=== PATIENT | female | born 2000 | race Asian ===

== ENCOUNTER 2024-11-03 09:50 | Outpatient (AMB) | payer OTHER, SELFPAY ==
--- NOTE | 2024-11-03 09:53 | A.OFFPC_ITS ---
Vital Signs 11/03/24 09:58 Height 5 ft 2 in Weight 106 lb 2 oz BMI 19.4 BP 102/67 Blood Pressure Location Lt brachial Position Sitting Respiration 12 Pulse 95 Pulse Source Pulse Oximeter Temp 97.5 F Temp Source Oral Pulse Oximetry (%) 99 Oxygen Delivery Method Room Air Intake Visit Reasons: CPE Intake Note: New patient to establish care and cpe Filler In Required: No Allergies apple Allergy (Severe, Verified 11/03/24 10:04) Unknown carrot Allergy (Severe, Verified 11/03/24 10:04) Unknown cat dander (cats) Allergy (Severe, Verified 11/03/24 10:04) Unknown pear Allergy (Severe, Verified 11/03/24 10:04) Unknown dust mite Allergy (Severe, Uncoded 11/03/24 09:54) Unknown pollen Allergy (Severe, Uncoded 11/03/24 09:54) Unknown Medication List - Last Reconciled 11/03/24 by Yanira Miller, MATERIAL CHASER-BC copper (ParaGard T 380A) intrauterine Tobacco use date assessed: 11/03/24 Dental Screening Dental Screen Date: 11/03/24 Did you have a dental visit in the last 12 months?: Yes Did you have a dental problem in the last 6 months where you did not have access to dental care?: No Was dental information given to patient?: Patient has dentist HPI HPI Comments History of Present Illness Details 24 y/o F with allergic rhinitis, eczema, food allergies, CRIS, bone mass L anterior chest wall (benign), bilat bunions and pes planus, family hx stroke (dad) Fhx: Dad 2021, age 54; pGF and pGM passed 2024; Hx of stroke Surgery: None Social: Lives w/ Mom, Brother, cousin, uncle and . Feels safe. Working calibration. Health Maintenance: Tdap 2013, updated today Pap referred to SECURITY INSTALLER today @ [facility] [place] Specialist: SECURITY INSTALLER Optho History of Present Illness - The patient is a 24-year-old female pr esenting for the establishment of care and a physical examination. - Records from [facility] rec' and reviewed - History of allergic rhinitis, eczema, and multiple food allergies. Well controlled; prn antihistamines otc w/ + effct - Reports last physical examination four years ago; has never visited an OB-SECURITY INSTALLER. - Strong family history of cardiovascula r events on the paternal side. - Reports anxiety associated with negati ve healthcare experiences. - Resides with family, employed in [employer]. - Bone mass on the left anterior chest w all benign - anxiety affecting mental health. Has n ever been on meds or in counseling. Denies SI/HI - Has bunions bilat feet and flat feet, saw podiatry in the past; would like to fu - would like updated eye exam Health Maintenance - Referred for counseling support. - Referral for first Pap smear. - IUD in place since 12/31/2020. - Updated tetanus vaccination. - Advised on self-breast exam techniques . - Referral for podiatry due to bunions. Review of Systems - General: Denies recent physical examin ation. - Psych: Reports anxiety related to heal thcare visits; denies depressive symptoms. - Dermatologic: History of eczema; curre ntly well-controlled. - Allergic/Immunologic: History of aller gic rhinitis and multiple food allergies. - Neurologic: Denies fainting episodes; no history of seizures. - Cardiovascular: Denies chest pain or p alpitations. - Respiratory: Denies shortness of breat h or coughing. - Gastrointestinal: Regular bowel moveme nts; no abdominal pain. - Genitourinary: Had IUD placement; regu lar menses despite contraceptive use. - Musculoskeletal: Reports benign bone m ass, previous evaluation. - Hematologic: No known bleeding disorde rs. Physical Exam General: Well developed, well nourished, in no acute distress. Appears stated age. Head: Normocephalic, atraumatic. Eyes: Pupils are equal, round and reactive to light and accommodation. Conjunctivae are clear. Vision grossly normal. Ears: TMs clear AU, EACS WNL. Nose: Patent, without discharge. Some allergies noted with a small polyp bilat. Neck: Supple, no adenopathy or thyromegaly. Breast: Edu on SBE. Patient advised to perform self-breast exams. Lungs: Clear to auscultation bilaterally. No rales, rhonchi or wheeze noted. Good air flow in all espinal. Heart: Regular rate and rhythm. No murmurs, click, rubs or gallops are noted. L chest wall is a firm palpable mass; this has been worked up in the past. Abdomen: Bowel sounds present in all quadrants. The abdomen is soft, nontender, with no masses or organomegaly noted. No hernias are noted. : Deferred. Reviewed recommendations for routine SECURITY INSTALLER. Referral for first Pap smear placed. Pulses: Peripheral pulses are equal and palpable bilaterally. Extremities: No clubbing, cyanosis nor edema is noted. Bunions noted on both feet; referral to podiatry placed. Neurologic: Gait and station normal. Cranial Nerves 2-12 intact. Motor strength grossly symmetrical and intact. No sensory loss. Balance normal. Skin: No rashes, ulcers, or lesions noted. Turgor is good. Skin color is good. Hair and nails are without abnormalities. Eczema well controlled. Psych: Normal eye contact, affect and mood appropriate, and normal interactions. Patient is alert and appropriate to context. Results - Labs: Comprehensive panel discussed, i ncluding blood counts, kidney and liver function, thyroid, diabetes screen. - STI Screening: HIV, syphilis, gonorrhe a, and chlamydia tests planned but not discussed as completed. Discussion Notes I discussed the possible familial risk of stroke and the significance of understanding this risk. The importance of regular health checkups, first Pap test, and mental health counseling was emphasized. I addressed the patient?s anx iety and need for support with a referral for counseling through our navigation team, ensuring a supportive follow-up process was understood. Discussions included the specifics of her contraceptive use and need for an OB-SECURITY INSTALLER visit. The potential benign nature of her bone mass and reassurance provided previously were noted. Our referrals and health maintenance updates were discussed, focusing on patient ease in obtaining care. For the engagement with a specialist, I provided instruction for self-management regarding her eye health and podiatry referral. Consent for lab work and STI screening was also noted, ensuring clarity on the process for follow-up communication about results via our patient portal. Assessment and Plan 1. Allergic Rhinitis - Continue antihistamines as needed. 2. Anxiety - Start with therapy; referral placed 3. Eczema - No changes needed. 4. Bone Mass, Left Chest - No action required. 5. IUD - Refer for Pap smear. 6. Podiatry - Referral initiated. 7. Health Maintenance - Tetanus shot updated. Refer to optho for eye exam Patient Instructions - Continue using antihistamines as neede d for allergies. - Follow up with counseling services for anxiety. - Regularly perform self-breast exams. - Complete Pap smear appointment when sc heduled. - Maintain updated vaccinations. - Schedule podiatry appointment as refer red. - Ensure comprehensive blood work and ST I testing today. - Engage with the patient portal to acce ss health information and communicate. - RTO 1 year CPE sooner PRN Consent Patient was informed and verbally consented to the use of an ambient scribe for clinic note documentation during this visit. An additional 15 minutes was spent addressing the problem(s) noted at todays visit. This includes time spent before the visit reviewing the chart, time spent during the visit, and time spent after the visit on documentation reviewing laboratory results, diagnostic imaging, medications, performing a medically nec essary evaluation, counseling on diagnoses, care coordination, ordering appropriate tests, ordering appropriate medications, review of tests performed by other providers, reporting test results with the patient, communication with other healthcare providers. [facility] Medical History (Updated 11/03/24 @ 10:41 by Yanira Miller, [facility]) Allergic rhinitis (~06/2015) Bone mass (~02/2015) Bunion of great toe of right foot (~02/2015) Eczema Food allergy Surgical History (Updated 11/02/24 @ 10:00 by Nathan Herron MA) No pertinent past surgical history Family History (Updated 11/02/24 @ 09:58 by Nathan Herron MA) Father HTN (hypertension) High cholesterol Paternal Grandmother Diabetes Social History (Updated 11/03/24 @ 10:02 by Nathan Herron MA) Household Members: Other Household Members Other:: Mother Housing: House Are you a primary respiratory care program director to a significant other at home: No Do you presently have visiting nurse or other home services: No Alcohol intake: current Alcohol intake frequency: a few times a month Patient Tobacco Use Status: Never used Tobacco e-Cigarette/Vaping Use: Never Used Second Hand Smoke Exposure: No Current occupational status: employed Current occupation: [employer] Current occupational exposures/hazards: No Cognitive needs: No Hearing needs: No Vision needs: No Questionnaire PHQ-9 Over the last 2 weeks, how often have you been bothered by any of the following problems? 1. Little interest or pleasure in doing things: not at all 2. Feeling down, depressed, or hopeless: not at all 3. Trouble falling or staying asleep, or sleeping too much: not at all 4. Feeling tired or having little energy: several days 5. Poor appetite or overeating: not at all 6. Feeling bad about yourself - or that you are a failure or have let yourself or your family down: not at all 7. Trouble concentrating on things, such as reading the newspaper or watching television: not at all 8. Moving or speaking so slowly that other people could have noticed. Or the opposite - being so fidgety or restless that you have been moving around a lot more than usual: not at all 9. Thoughts that you would be better off or of hurting yourself in some way: not at all Total score: 1 Depression Screening Interpretation: Negative Depression Screening Done: Yes 68176 - PHQ-9 Billing: Yes Source: Developed by Drs. Juan Francisco Hopper, Imelda Prado, Kevin Dela Cruz and colleagues, with an educational mirella from [email or web address]. Thrive Questionnaire Date Thrive assessed: 11/03/24 I am a: Patient What is your living situation today?: I have a steady place to live Within the past 12 months, did the food you bought not last and you didn't have the money to get more?: Never true Within the past 12 months, did you worry whether your food would run out before you got money to buy more?: Never true Do you have trouble paying for medicines?: No Do you have trouble getting transportation to medical appointments?: No Do you have trouble paying your heating and electricity bill?: No Do you have trouble taking care of your child, family member or friend?: No Do you have trouble with day-to-day activities such as bathing, preparing meals, shopping, managing finances, etc.?: No Are you currently unemployed and looking for a job?: No Are you interested in more education?: I choose not to answer this question Please select the resources that you would like help with: None Currently or been in a relationship where the following occur: No concerns reported THRIVE Score: 0 AUDIT C Alcohol Use Questionnaire (AUDIT-C) 1. How often do you have a drink containing alcohol?: Monthly or less 2. How many drinks containing alcohol do you have on a typical day when you are drinking?: 1 or 2 3. How often do you have six or more drinks on one occasion?: Never Total Score: 1 Score Reviewed/Action Taken: Yes CRIS-7 AMB Questionnaire CRIS-7 Date CRIS - 7 assessed: 11/03/24 Feeling nervous, anxious, or on edge: 0 = Not at all Not being able to stop or control worryin = Not at all Worrying too much about different things: 0 = Not at all Trouble relaxin = Not at all Being so restless that it is hard to sit still: 0 = Not at all Becoming easily annoyed or irritable: 1 = Several days Feeling afraid as if something awful might happen: 0 = Not at all Total CRIS-7 score (0-4 normal; 5-9 mild; 10-14 moderate; 15-21 severe): 1 Source: Developed by Drs. Juan Francisco Hopper, Imelda Prado, Kevin Dela Cruz and colleagues, with an educational mirella from [email or web address]. CRIS-7 Assessment Billing CRIS-7 Assessment Tool: CRIS-7 Assessment 29564 Physical exam (Primary Care) Vital Signs: Last Vital Signs Temp 97.5 F 11/03/24 09:58 Pulse 95 11/03/24 09:58 Resp 12 11/03/24 09:58 BP 102/67 11/03/24 09:58 Pulse Ox 99 11/03/24 09:58 Oxygen Delivery Method Room Air 11/03/24 09:58 BMI result Body Mass Index 19.4 Tobacco/Smoking Status: Tobacco use Status Tobacco use date assessed 11/03/24 11/03/24 09:59 Patient Tobacco Use Status Never used Tobacco 11/03/24 10:02 e-Cigarette/Vaping Use Never Used 11/03/24 10:02 PHQ-9: PHQ-9 Score PHQ-9: Total score 1 11/03/24 10:06 Depression Screening Interpretation: Negative Thrive Assessment: Date of Thrive Assessment Date Thrive assessed 11/03/24 11/03/24 09:55 Currently or been in a relationship where the following occur: No concerns reported Coding Level of Care Code New Pt Level 2 (61044) New Pt Prev Care 18-39yr(87049 Diagnoses Encounter to establish care Z76.89 Patient's father is Z84.89 CRIS (generalized anxiety disorder) F41.1 IUD (intrauterine device) in place Z97.5 Blurred vision H53.8 Laboratory exam ordered as part of routine general medical examination Z00.00 Pes planus of both feet M21.41; M21.42 Bilateral bunions M21.611; M21.612 Encounter for general adult medical examination with abnormal findings Z00.01 Family history of stroke Z82.3 Food allergy Z91.018 Allergic rhinitis J30.9 Eczema L30.9 Bone mass M89.8X9 Additional Codes CRIS-7 Assessment Billing - CRIS-7 Assessment Tool: CRIS-7 Assessment 29626 ([id number]) PHQ-9 - 76954 - PHQ-9 Billing: Yes ([id number]) Assessment & Plan Assessment & Plan (1) Encounter to establish care: Code(s): Z76.89 - Persons encountering health services in other specified circumstances (2) Patient's father is : Onset Date: ~2021 Comment: DC and/or Stroke Code(s): Z84.89 - Family history of other specified conditions Category: Medical (3) CRIS (generalized anxiety disorder): Code(s): F41.1 - Generalized anxiety disorder Category: Medical (4) IUD (intrauterine device) in place: Onset Date: ~12/31/20 Code(s): Z97.5 - Presence of (intrauterine) contraceptive device Category: Medical (5) Blurred vision: Code(s): H53.8 - Other visual disturbances Category: Medical (6) Laboratory exam ordered as part of routine general medical examination: Code(s): Z00.00 - Encounter for general adult medical examination without abnormal findings Category: Medical (7) Pes planus of both feet: Code(s): M21.41 - Flat foot [pes planus] (acquired), right foot; M21.42 - Flat foot [pes planus] (acquired), left foot Category: Medical (8) Bilateral bunions: Code(s): M21.611 - Bunion of right foot; M21.612 - Bunion of left foot Category: Medical (9) Encounter for general adult medical examination with abnormal findings: Onset Date: ~11/03/24 Code(s): Z00.01 - Encounter for general adult medical examination with abnormal findings Category: Medical (10) Family history of stroke: Comment: paternal side Code(s): Z82.3 - Family history of stroke Category: Medical (11) Food allergy: Code(s): Z91.018 - Allergy to other foods Category: Medical (12) Allergic rhinitis: Onset Date: ~06/2015 Code(s): J30.9 - Allergic rhinitis, unspecified Category: Medical (13) Eczema: Code(s): L30.9 - Dermatitis, unspecified Category: Medical (14) Bone mass: Onset Date: ~02/2015 Comment: ANTERIOR LEFT CHEST WALL, PRESENT ENTIRE LIFE NEGATIVE WORK UP NO CHANGES Code(s): M89.8X9 - Other specified disorders of bone, unspecified site Category: Medical Plan . Orders: Orders Complete Blood Count no Diff Today Z00.00 - Encounter for general adult medical examination without abnormal findings, Z11.3 - Encounter for screening for infections with a predominantly sexual mode of transmission Comprehensive Met. Panel Today Z00.00 - Encounter for general adult medical examination without abnormal findings, Z11.3 - Encounter for screening for infections with a predominantly sexual mode of transmission Hemoglobin A1c Today Z00.00 - Encounter for general adult medical examination without abnormal findings, Z11.3 - Encounter for screening for infections with a predominantly sexual mode of transmission IRON PROFILE Today Z00.00 - Encounter for general adult medical examination without abnormal findings, Z11.3 - Encounter for screening for infections with a predominantly sexual mode of transmission Microalbumin, Random (w Creat) Today Z00.00 - Encounter for general adult medical examination without abnormal findings, Z11.3 - Encounter for screening for infections with a predominantly sexual mode of transmission UA CC w/rflx Micro + Cult Today R30.0 - Dysuria, Z00.00 - Encounter for general adult medical examination without abnormal findings, Z11.3 - Encounter for screening for infections with a predominantly sexual mode of transmission HIV Ab/Ag Today Z00.00 - Encounter for general adult medical examination without abnormal findings, Z11.3 - Encounter for screening for infections with a predominantly sexual mode of transmission Lipid Panel Today Z00.00 - Encounter for general adult medical examination without abnormal findings, Z11.3 - Encounter for screening for infections with a predominantly sexual mode of transmission TSH reflex Free T4 Today Z00.00 - Encounter for general adult medical examination without abnormal findings, Z11.3 - Encounter for screening for infections with a predominantly sexual mode of transmission Vitamin B12 and Folate Today Z00.00 - Encounter for general adult medical examination without abnormal findings, Z11.3 - Encounter for screening for infections with a predominantly sexual mode of transmission Vitamin D 25-OH Total Today Z00.00 - Encounter for general adult medical examination without abnormal findings, Z11.3 - Encounter for screening for inf ections with a predominantly sexual mode of transmission Syphilis Screen Today Z00.00 - Encounter for general adult medical examination without abnormal findings, Z11.3 - Encounter for screening for infections with a predominantly sexual mode of transmission CT NG by PCR Vag/Cerv Today Z00.00 - Encounter for general adult medical examination without abnormal findings, Z11.3 - Encounter for screening for infections with a predominantly sexual mode of transmission TDaP Immunization Today Z23 - Encounter for immunization Referrals Nurse Navigator Referral F41.1 - Generalized anxiety disorder SPECIALTY MOLDER Referral Z12.4 - Encounter for screening for malignant neoplasm of cervix, Z97.5 - Presence of (intrauterine) contraceptive device Optometry Referral H53.8 - Other visual disturbances Podiatry Referral M21.41 - Flat foot [pes planus] (acquired), right foot, M21.42 - Flat foot [pes planus] (acquired), left foot, M21.611 - Bunion of right foot, M21.612 - Bunion of left foot Patient Instructions: Patient Instructions - Continue using antihistamines as needed for allergies. - Follow up with counseling services for anxiety. - Regularly perform self-breast exams. - Complete Pap smear appointment when scheduled. - Maintain updated vaccinations. - Schedule podiatry appointment as referred. - Ensure comprehensive blood work and STI testing today. - Engage with the patient portal to access health information and communicate. - Return in 1 year for physical, sooner as needed. Health screenings for women You should visit your health care provider from time to time, even if you are healthy. The purpose of these visits is to: Screen for medical issues Assess your risk for future medical problems Encourage a healthy lifestyle Update vaccinations and other preventive care services Help you get to know your provider in case of an illness Information Even if you feel fine, you should still see your provider for regular checkups. These visits can help you avoid problems in the future. For example, the only way to find out if you have high blood pressure is to have it checked regularly. High blood sugar and high cholesterol levels also may not have any symptoms in the early stages. A simple blood test can check for these conditions. There are specific times when you should see your provider or receive specific health screenings. The [place] Preventive Services Task Force publishes a list of recommended screenings. Below are screening guidelines for women ages 18 to 39. BLOOD PRESSURE SCREENING Your blood pressure should be checked at least once every 3 to 5 years if: Your blood pressure is in the normal range (top number less than 120 mm Hg and bottom number less than 80 mm Hg) You don't have risk factors for high blood pressure Ask your provider if you need your blood pressure checked more often if: The top number is 120 to 129 mm Hg or the bottom number is 70 to 79 mm Hg You have diabetes, heart disease, kidney problems, are overweight, or have certain other health conditions You have a first-degree relative with high blood pressure You are Black You had high blood pressure during a If the top number is 130 mm Hg or greater or the bottom number is 80 mm Hg or greater, this is considered stage 1 hypertension. Schedule an appointment with your provider to learn how you can reduce your blood pressure. Watch for blood pressure screenings in your area. Ask your provider if you can stop in to have your blood pressure checked. BREAST CANCER SCREENING Experts do not agree about the benefits of breast self-exams in finding breast cancer or saving lives. Talk to your provider about what is best for you. A screening mammogram is not recommended for most women under age 40. Your provider may discuss and recommend mammograms, MRI scans, or ultrasounds if you have an increased risk for breast cancer, such as: A mother or sister who had breast cancer at a young age (most often starting screening earlier than the age the close relative was diagnosed) You carry a high-risk genetic marker CERVICAL CANCER SCREENING Cervical cancer screening should start at age 21 years unless your provider advises otherwise. After the first test: Women ages 21 through 29 should have a Pap test every 3 years. Exoprts do not agree on whether HPV testing is recommended for this age group. Women ages 30 through 65 should be screened with either a Pap test every 3 years or the HPV test every 5 years or both tests every 5 years (called cotesting ). Women who have been treated for precancer (cervical dysplasia) should continue to have Pap tests for 20 years after treatment or until age 65, whichever is longer. If you have had your uterus and cervix removed (total hysterectomy), and you have not been diagnosed with cervical cancer or precancer (high grade cervical neoplasia), you do not need cervical cancer screening. CHOLESTEROL SCREENING Cholesterol screening should begin at: Age 45 for women with no known risk factors for coronary heart disease Age 20 for women with known risk factors for coronary heart disease Repeat cholesterol screening should take place: Every 5 years for women with normal cholesterol levels More often if changes occur in lifestyle (including weight gain and diet) More often if you have diabetes, heart disease, kidney problems, or certain oth er conditions DIABETES SCREENING You should be screened for diabetes starting at age 35 and then repeated every 3 years if you have no risk factors for diabetes. Screening may need to start earlier and be repeated more often if you have other risk factors for diabetes, such as: You have a first degree relative with diabetes. You are overweight or have obesity. You have high blood pressure, prediabetes, or a history of heart disease. Screening for diabetes should be done if you are planning to become and you are overweight and have other risk factors such as high blood pressure. DENTAL EXAM Go to the dentist once or twice every year for an exam and cleaning. Your dentist will evaluate if you need more frequent visits. EYE EXAM Have an eye exam every 5 to 10 years before age 40. If you have vision problems, have an eye exam every 2 years or more often if recommended by your provider. You should have an eye exam that includes an examination of your retina (back of your eye) at least every year if you have diabetes. IMMUNIZATIONS Commonly needed vaccines include: Flu shot: get one every year. COVID-19 vaccine: ask your provider what is best for you. Tetanus-diphtheria and acellular pertussis (Tdap) vaccine: have one at or after age 19 as one of your tetanus-diphtheria vaccines if you did not receive it as an adolescent. Tetanus-diphtheria: have a booster (or Tdap) every 10 years. Varicella vaccine: receive 2 doses if you never had chickenpox or the varicella vaccine. Hepatitis B vaccine: receive 2, 3, or 4 doses, depending on your exact circumstances. Measles, mumps, and rubella (MMR) vaccine: receive 1 to 2 doses if you are not already immune to MMR. Your provider can tell you if you are immune. Ask your provider about the human papillomavirus (HPV) vaccine if: You have not received the HPV vaccine in the past You have not completed the full vaccine series (you should catch up on this shot) Ask your provider if you should receive other immunizations if you have certain health problems that increase your risk for some diseases such as pneumonia. INFECTIOUS DISEASE SCREENING Women who are sexually active should be screened for chlamydia and gonorrhea up until age 25. Women 25 years and older should be screened for chlamydia and gonorrhea if at high risk. Screening for hepatitis C: All adults ages 18 to 79 should get a one-time test for hepatitis C. people should be screened at every . Screening for human immunodeficiency virus (HIV): All people ages 15 to 65 should get a one-time test for HIV. Depending on your lifestyle and medical history, you may also need to be screened for infections such as syphilis and HIV, as well as other infections. PHYSICAL EXAM All adults should visit their provider from time to time, even if they are healthy. The purpose of these visits is to: Screen for disease Assess your risk of future medical problems Encourage a healthy lifestyle Update your vaccinations and other preventive care services Maintain a relationship with a provider in case of an illness Your height, weight, and BMI should be checked at every exam. During your exam, your provider may ask you about: Depression and anxiety Diet and exercise Alcohol and tobacco use Safety issues, such as using seat belts, smoke detectors, and intimate partner violence Your medicines and risk for interactions SKIN SELF-EXAM Your provider may check your skin for signs of skin cancer, especially if you're at high risk, such as if you: Have had skin cancer before Have close relatives with skin cancer Have a weakened immune system OTHER SCREENING Talk with your provider about colon cancer screening if you have a strong family history of colon cancer or polyps, or if you have had inflammatory bowel disease or polyps yourself. Routine bone density screening of women under 40 is not recommended. Walk-In Care (Urgent Care): We Make it Easy Walk-in for urgent medical issues such as: ? Seasonal Allergies ? Insect Bites ? Cough ? Diarrhea ? Acute Asthma Attacks ? Back, Knee or Joint Pain ? Ear Infection ? Fever without a Rash ? Headaches ? Nausea ? [place] [facility], Rash or Skin Irritation ? Sore Throat ? Sports Physicals ? Vomiting Most insurances are accepted. Patients do not need to be part of the [facility] to seek care at the walk-in clinic. Locations [address], [place] [address] ? [phone] [facility] in [place] provides services to ages 18 and over. Open Wednesday-Wednesday: 8 a.m. to 5 p.m. and Wednesday: 9 a.m. to 3 p.m.* *Hours may vary due to staffing availability. To confirm Walk-In Care hours in [place], please call [phone]. [address] [place] [address] ? [phone] [facility] Walk-In Care in [place] provides services to ages 12 and over. Open Wednesday-Wednesday: 8 a.m. to 5 p.m. Hours may vary due to staffing availability. To confirm Walk-In Care hours in [place], please call [phone]. LABORATORY SERVICES: [facility] Lab ? Primary Location [address] [place] [address] Wednesday through Wednesday 6:00 AM ? 5:00 PM Wednesday 7:00 AM ? 11:00 AM* [phone] The [facility] Lab is centrally located near the front entrance of the [facility] for easy outpatient access. Convenient parking is provided for outpatients. *Hours may vary due to staffing availability. To confirm Laboratory hours for any location, please call [phone]. Offsite Location For your convenience, we offer offsite laboratory draw stations at the following locations: [address] [place] [address] ? [address], [address] Wednesday through Wednesday 7:30 AM ? 1:00 PM* [phone] *Hours may vary due to staffing availability. To confirm Laboratory hours for any location, please call [phone]. [place] ? [address] Wednesday through Wednesday 6:00 AM ? 3:30 PM* Wednesday 6:30 AM ? 3 PM* [phone] *Hours may vary due to staffing availability. To confirm Laboratory hours for any location, please call [phone] [place] [address] Wednesday through Wednesday 7:30 AM ? 4:00 PM* [phone] *Hours may vary due to staffing availability. To confirm Laboratory hours for any location, please call [phone]. [address] [facility] Wednesday through 9:00 AM ? 4:00 PM* *Hours may vary due to staffing availability. To confirm Laboratory hours for any location, please call [phone]. Appointments are not necessary. Walk-ins are welcome. Like all the departments throughout the [facility], our Lab undergoes frequent reviews to ensure the quality and accuracy of test results, and our staff takes special pride in its status as a nationally accredited facility. Patient Portal: ONE PATIENT. ONE RECORD. BETTER CARE. [facility] has a fully integrated, cutting- edge mobile electronic health information system that has revolutionized the way we care for our patients and manage our organization. This system improves communication and coordination enabling us to provide safe, higher-quality care, and an overall positive experience for staff and patients. Our first priority, as always, is to deliver the highest quality care possible. The system is running in the background supporting that priority. This portal is for all [facility] services and practices. If you are experiencing any technical difficulties with enrolling or logging into the Patient Portal please complete the [facility] Patient Portal Technical Support Form. [facility] now offers a new secure on-line interactive tool for patients to review their health information ? ?Patient Portal. This interactive web portal will enable patients and their families to take an active role in their care by providing easy, secure access to their health information via the internet. The Patient Portal provides patients with instant access to their health information, including laboratory results, medications, allergies, demographic information, visit history, and more. In addition to managing their own care, parents and health care proxies with authorized consent will appreciate the ability to access the records of those individuals for whom they provide care. Please note: if you wish to gain access (Proxy) to another patient?s portal, you will be required to come to the Medical Records Department in person at [facility]. Both the patient giving proxy access and the proxy will need to provide photo identification and complete the appropriate authorization. The Patient Portal also allows track their appointments online. The [facility] Patient Portal also saves patients time by allowing them to submit updates to their demographic and contact information prior to their visits. Portal email notifications will also alert patients to any new activity on their portal, such as test results and new appointments. In order to initially enroll in the [facility] Patient Portal, you will need to enter some required information including the following: * your [facility] Medical Record number * your personal home email address * name * date of Please note: In order to enroll in the [facility] Patient Portal, we need to have your email address on file in your electronic medical record. ?The email address needs to be specific for one person (yourself) in order for your Portal enrollment to be successful. ?You can update your email address in person with our Registration staff when you are registering for a hospital visit. ?Otherwise, you will need to come to the Health Information Management (Medical Records) Department at [facility]. ?We are open from Wednesday ? Wednesday from 7:30 a.m. ? 4:30 p.m. ?You will be required to present a photo id. Once you have successfully enrolled in the Patient Portal, you will receive a one-time user id and password for the Portal, sent to your email address. ?This will allow you to log into the Patient Portal within 99 hrs and reset your own logon id and password, and define personal security questions. ?Once your permanent login and password have been set, you can log into the [facility] Patient Portal at any time via the blue button above or from the Portal Logon button on any page of the [facility] website. [facility] and [facility] encourage all of our patients to enroll in Patient Portal as it presents a valuable opportunity for patients and their families to actively participate in their care and stay healthy Welcome to [facility]. ?We look forward to working with you.
[2024-11-03 09:58] VITALS: BP 102/67; PULSE 95; RESP 12; TEMP 36.4; O2SAT 99; BMI 19.4
== END 2024-11-03 10:47 | disposition home or self-care (01) ==
LOC: HO.HMCFM 09:51
PROVIDERS: PCP Nurse Practitioner Family; Visit Provider Nurse Practitioner Family
DX: Z00.00 Encounter for general adult medical examination without abnormal findings (principal); F41.1 Generalized anxiety disorder; H53.8 Other visual disturbances; M21.41 Flat foot [pes planus] (acquired), right foot; Z76.89 Persons encountering health services in other specified circumstances; Z84.89 Family history of other specified conditions; Z97.5 Presence of (intrauterine) contraceptive device; M21.42 Flat foot [pes planus] (acquired), left foot; M21.611 Bunion of right foot; M21.612 Bunion of left foot; Z23 Encounter for immunization

== ENCOUNTER 2024-11-03 09:50 | Outpatient (REF) | payer OTHER, SELFPAY ==
--- OUTSIDE RECORDS SUMMARY | 2024-11-03 11:14 | XMS_ITS | Clinical Summary ---
Author Organization [facility] Address [address] [place] [address] Phone Care Team Providers Care Knitting Machine Fixer Name Role Phone Ngoc Salmeron MD Primary Care Provider [phone] Immunizations Immunization Administration Dates Next Due DTaP 5 10/29/2006, 4,01/26/2003, 003,2002 H1N1 Inj 03/30/2009,02/27/2009 Hep B, ped/adol 06/01/2003,2002,2002 Hib (PRP-T) 12/28/2003, 3,2002, 003 IPV 10/29/2006, 4,2002, 003 MMR 12/28/2003 MMRV 10/29/2006 Meningococcal Conj (Menactra) MCV4P 12/05/2013 Pneumococcal Conjugate 01/26/2003,2002,05/2002 Tdap 12/05/2013 Varicella 08/06/2003 Social History Tobacco Use Types Packs/Day Years Used Date Smoking Tobacco: Never Comments:Never Smoker Comments Unknown Sex and Gender Information Value Date Recorded Sex Assigned at Not on file Legal Sex Female 6:17 PM EDT Gender Identity Not on file Sexual Orientation Not on file Last Filed Vital Signs Vital Sign Reading Time Taken Comments Blood Pressure - - Pulse 72 03/09/2017 4:07 PM EST Temperature 37.8 C (100.1 F) 03/09/2017 4:07 PM EST Respiratory Rate - - Oxygen Saturation - - Inhaled Oxygen Concentration - - Weight 46.4 kg (102 lb 4.8 oz) 03/09/2017 4:07 P M EST Height 155.6 cm (5' 1.25 ) 03/09/2017 4:07 PM ES T Body Mass Index 19.17 03/09/2017 4:07 PM EST Plan of Treatment Health Maintenance Due Date Last Done Comments HPV Vaccines (1 - 3-dose series) 2017 Men B Vaccine (1 of 2 - Standard) 2018 DTaP,Tdap,and Td Vaccines (7 - Td or Tdap) 12/06/2023 12/05/2013, 10/29/2006, 12/28/2003, Additional history exists COVID-19 Vaccine ( season) 2023 Influenza Vaccines (#1) 2024 Pneumococcal Vaccine Aged Out 01/26/2003, 2002, 2002 No longer eligible based on patient's age to complete this topic Hepatitis B Vaccines Completed 06/01/2003, 2002, 2002 HIB Vaccines Completed 12/28/2003, 01/17, 2002, Additional history exists IPV Vaccines Completed 10/29/2006, 07/18, 2002, Additional history exists MMR Vaccines Completed 10/29/2006, 12/28/2003 Varicella Vaccines Completed 10/29/2006, 08/06/2003 Meningococcal Vaccine Aged Out 12/05/2013 No franklyn olimpia eligible based on patient's age to complete this topic Hepatitis A Vaccines Aged Out No long er eligible based on patient's age to complete this topic Insurance [facility] Care Teams Knitting Machine Fixer Relationship Specialty Start Date End Date Ngoc Salmeron MD PCP - General 08/25/17
[2024-11-03 14:18] LABS: Hematocrit 33.4 % (37.0-47.0); Hemoglobin 10.1 g/dl (12.0-16.0); Mean Corpuscular HGB Conc 30.2 g/dl (31.0-35.0); Mean Corpuscular Hemoglobin 20.4 pg (27.0-33.0); Mean Corpuscular Volume 67.3 fL (80.0-98.0); NRBC Abs Auto 0.000 X10*3/uL (0.0-0.012); NRBC Pct Auto 0.0 /100WBC (0.0-0.2); Platelet Count 278 X10*3/uL (160-400); Red Blood Count 4.96 X10*6/uL (4.20-5.50); White Blood Count 5.6 X10*3/uL (4.8-10.8)
[2024-11-03 14:26] LABS: Alanine Aminotransferase 13 U/L (0-31); Albumin Level 4.4 g/dL (3.5-5.0); Alkaline Phosphatase 50 U/L (39-117); Anion Gap 10 (12-20); Aspartate Amino Transferase 20 U/L (5-31); Blood Urea Nitrogen 7 mg/dL (9-16); Calcium 9.0 mg/dL (8.4-10.2); Carbon Dioxide 26 mmol/L (22-29); Chloride 107 mmol/L (96-108); Cholesterol 185 mg/dL (<200); Estimated Glomerular Filt Rate > 60; HDL Cholesterol 73 mg/dL (>40); Iron 22 mcg/dL (30-160); Percent Iron Saturation 6 % (15-50); Potassium 3.6 mmol/L (3.3-5.1); Sodium 139 mmol/L (135-145); Total Iron Binding Capacity 356 mcg/dL (228-428); Total Protein 7.6 g/dL (6.5-8.0); Triglycerides 57 mg/dL (<150); Unsaturated Iron Binding 334 ug/dL
[2024-11-03 14:42] LABS: Hemoglobin A1C 92.4595 umol/L; Total Hemoglobin (HGBA1C) 2694.2203 umol/L
[2024-11-03 14:52] LABS: Appearance Urine Clear; Glucose Urine UA Negative (Negative); PH 7.0 (5.0-9.0); Specific Gravity - Urine 1.010 (1.005-1.025); UMIC TRIGGER UACC YES
[2024-11-03 14:57] LABS: Folate 6.6 ng/mL (> or = 4.0); Vitamin B12 683 pg/mL (200-900)
[2024-11-03 14:59] LABS: UACC Culture Trigger YES
[2024-11-03 16:40] LABS: CT PCR Urine NOT DETECTED (Not Detect.); NG PCR Urine NOT DETECTED (Not Detect.)
[2024-11-04 03:22] LABS: Syphilis Screen Nonreactive (Nonreactive)
[2024-11-04 03:35] LABS: HIV Num 1 0.04 S/CO (0.00-0.99)
== END 2024-11-03 09:51 | disposition home or self-care (01) ==
LOC: HO.LNP 09:50
PROVIDERS: PCP Nurse Practitioner Family; Visit Provider Nurse Practitioner Family
DX: Z00.01 Encounter for general adult medical examination with abnormal findings (principal); Z76.89 Persons encountering health services in other specified circumstances; Z23 Encounter for immunization; F41.1 Generalized anxiety disorder; H53.8 Other visual disturbances; M21.41 Flat foot [pes planus] (acquired), right foot; M21.42 Flat foot [pes planus] (acquired), left foot; M21.611 Bunion of right foot; M21.612 Bunion of left foot; J30.9 Allergic rhinitis, unspecified; L30.9 Dermatitis, unspecified; M89.8X9 Other specified disorders of bone, unspecified site; Z91.018 Allergy to other foods; Z97.5 Presence of (intrauterine) contraceptive device; Z82.3 Family history of stroke; Z13.31 Encounter for screening for depression; Z13.39 Encounter for screening examination for other mental health and behavioral disorders; R30.0 Dysuria; Z11.3 Encounter for screening for infections with a predominantly sexual mode of transmission
CPT/HCPCS: 80053; 80061; 81001; 82043; 82306; 82570; 82607; 82746; 83036; 83540; 84443; 85027; 86780; 87086; 87389; 87491; 87591; 90471; 90715; 96127; 99202; 99385

== ENCOUNTER 2024-11-03 10:43 | Outpatient (REF) | payer OTHER, SELFPAY | END 2024-11-03 10:44 | disposition home or self-care (01) | LOC: HO.LAB 10:43 | PROVIDERS: Visit Provider Nurse Practitioner Family | DX: Z13.89 Encounter for screening for other disorder (principal) ==

== ENCOUNTER 2024-11-03 11:00 | Outpatient (REF) | payer OTHER, SELFPAY | END 2024-11-03 11:01 | disposition home or self-care (01) | LOC: HO.WFDLDS 11:00 | PROVIDERS: Visit Provider Nurse Practitioner Family | DX: Z13.89 Encounter for screening for other disorder (principal) ==

== ENCOUNTER 2024-12-22 15:32 | Outpatient (AMB) | payer OTHER, SELFPAY ==
--- NOTE | 2024-12-22 15:35 | MHC.OFFVIS ---
Vital Signs 12/22/24 15:37 Height 5 ft 2 in Weight 105 lb BMI 19.2 Intake Visit Reasons: New Pt- Bilateral bunions Intake Note: Stacie is a 24 year old female who presents today as a new patient for an evaluation of her bilateral bunions. She mentions no pain while ambulating only when she wears heels. Patient reports this has been an ongoing issue since childhood Allergies apple Allergy (Severe, Verified 12/22/24 15:36) Unknown carrot Allergy (Severe, Verified 12/22/24 15:36) Unknown cat dander (cats) Allergy (Severe, Verified 12/22/24 15:36) Unknown pear Allergy (Severe, Verified 12/22/24 15:36) Unknown dust mite Allergy (Severe, Uncoded 11/03/24 09:54) Unknown pollen Allergy (Severe, Uncoded 11/03/24 09:54) Unknown HPI HPI New Pt- Bilateral bunions: Details: 24-year-old female seen today for initial evaluation of bilateral bunion pain. She states that she has had bunions her entire life. She has seen a sales audit clerk in the past who prescribed her orthotics so she had her bunions, which she still uses. She has noticed her bunions progressing, worse when wearing high heel shoes. [facility] Medical History (Updated 12/22/24 @ 16:19 by Jese Morales DPM) Food allergy Eczema Bunion of great toe of right foot (~02/2015) Bone mass (~02/2015) Allergic rhinitis (~06/2015) Surgical History (Updated 11/02/24 @ 10:00 by Nathan Herron MA) No pertinent past surgical history Family History (Updated 11/02/24 @ 09:58 by Nathan Herron MA) Father HTN (hypertension) High cholesterol Paternal Grandmother Diabetes Social History (Updated 11/03/24 @ 10:02 by Nathan Herron MA) Household Members: Other Household Members Other:: Mother Both parents involved: No Caregiver staying overnight: No Housing: House Are you a primary before and after school daycare worker to a significant other at home: No Do you presently have visiting nurse or other home services: No 75 years or older and lives alone: No Alcohol intake: current Alcohol intake frequency: a few times a month Patient Tobacco Use Status: Never used Tobacco e-Cigarette/Vaping Use: Never Used Second Hand Smoke Exposure: No Current occupational status: employed Current occupation: [employer] Current occupational exposures/hazards: No Cognitive needs: No Hearing needs: No Vision needs: No Review of Systems Const All systems reviewed & are unremarkable except as noted in HPI and below Physical Exam Vital Signs: BMI result Body Mass Index 19.2 Extrem Other: *Bilateral Lower Extremity Focused Exam Vascular: DP/PT 2/4, CFT<3s to digits, TG warm to cool, no pedal edema Derm: No open wounds or lacerations. Neuro: Protective sensation grossly intact to bilateral lower extremities. MSK: Prominent medial eminence noted at the bilateral first metatarsophalangeal (MTP) joint without tenderness on palpation. Tracking hallux valgus deformity. Bilateral 1st Metatarsophalangeal joint ROM: 65 ? dorsiflexion. No joint crepitus. No pain on end range of motion. Positive Hypermobile first ray bilaterally. Functional hallux limitus with 25 degrees of dorsiflexion on weight-bearing. Tailor's bunionnette bilaterally, tracking. Assessment & Plan Assessment & Plan (1) Hallux valgus (acquired), right foot: Code(s): M20.11 - Hallux valgus (acquired), right foot Category: Medical Plan: Discussed etiology of bilateral bunions and her flatfeet. Discussed hyper-mobility aspect of her first ray which leads to worsening progressive deformity of her bunion deformity. Explained that she may use bunion sleeves to reduce her bunion deformity to decrease her pain symptoms however her bunion deformity is a progressive deformity and will likely worsen over time. Discussed she will likely require surgical correction for her bunions in the future to avoid eventual progression of 1st MTP joint arthritis. Recommend continued use of her orthotics to slow down progression of her pes valgus. Rx bilateral feet x-rays. Recommend following up after x-rays to discuss surgical options in the future. (2) Hallux valgus (acquired), left foot: Code(s): M20.12 - Hallux valgus (acquired), left foot Category: Medical Plan: Tracking deformity (3) Hypermobile joint syndrome of both feet: Code(s): M24.874 - Other specific joint derangements of right foot, not elsewhere classified; M24.875 - Other specific joint derangements left foot, not elsewhere classified Category: Medical Plan: 1st TMT hypermobility (4) Tailor's bunion of both feet: Code(s): M21.621 - Bunionette of right foot; M21.622 - Bunionette of left foot Category: Medical Plan: Tracking deformity (5) Pes planus of both feet: Code(s): M21.41 - Flat foot [pes planus] (acquired), right foot; M21.42 - Flat foot [pes planus] (acquired), left foot Category: Medical Plan: Continue orthotics Orders: Orders XR Foot Kali 3V Today M20.11 - Hallux valgus (acquired), right foot, M20.12 - Hallux valgus (acquired), left foot Coding Level of Care Code New Pt Level 3 (78011) Diagnoses Hallux valgus (acquired), right foot M20.11 Hallux valgus (acquired), left foot M20.12 Hypermobile joint syndrome of both feet M24.874; M24.875 Tailor's bunion of both feet M21.621; M21.622 Pes planus of both feet M21.41; M21.42 Time Spent (min) 30
--- OUTSIDE RECORDS SUMMARY | 2024-12-22 15:35 | XMS_ITS | Encounter Summary ---
Author Organization [facility] Address [address] [place] [address] Phone Care Team Providers Care Men'S Furnishings Salesperson Name Role Phone Ngoc Salmeron MD Primary Care Provider [phone] Encounter Details Date Type Department Care Team (Late st Contact Info) Description 08/28/2010 Conversion Encounter [facility] [address] [facility] [address] [place] [address] Social History Tobacco Use Types Packs/Day Years Used Date Smoking Tobacco: Never Assessed Comments Unknown Sex and Gender Information Value Date Recorded Sex Assigned at Not on file Legal Sex Female 6:17 PM EDT Gender Identity Not on file Sexual Orientation Not on file documented as of this encounter Plan of Treatment Not on file documented as of this encounter Visit Diagnoses Not on filedocumented in this encounter Care Teams Men'S Furnishings Salesperson Relationship Specialty Start Date End Date Ngoc Salmeron MD PCP - General 08/25/17 documented as of this encounter
--- OUTSIDE RECORDS SUMMARY | 2024-12-22 15:35 | XMS_ITS ---
Author Name [facility] Organization Unknown Care Team Organization Name Specialty Phone Email Start Date End Da josh [facility] 02/24/20222023
--- OUTSIDE RECORDS SUMMARY | 2024-12-22 15:35 | XMS_ITS | Clinical Summary ---
Author Organization [facility] Address [address] [place] [address] Phone Care Team Providers Care Recycling Tech Name Role Phone Ngoc Salmeron MD Primary Care Provider [phone] Immunizations Immunization Administration Dates Next Due DTaP [...] 12/06/2023 12/05/2013, 10/29/2006, 12/28/2003, Additional history exists Influenza Vaccines (#1) 2024 COVID-19 Vaccine ( season) 2024 Pneumococcal Vaccine Aged Out 01/26/2003, 2002, [...] patient's age to complete this topic Insurance [facility] Care Teams Recycling Tech Relationship Specialty Start Date End Date Ngoc Salmeron MD PCP - General 08/25/17
[2024-12-22 15:37] VITALS: BMI 19.2
== END 2024-12-22 16:02 | disposition home or self-care (01) ==
LOC: HO.HPODS 15:32
PROVIDERS: PCP Nurse Practitioner Family; Visit Provider Student in an Organized Health Care Education/Training Program
DX: M20.11 Hallux valgus (acquired), right foot (principal); M20.12 Hallux valgus (acquired), left foot; M24.874 Other specific joint derangements of right foot, not elsewhere classified; M24.875 Other specific joint derangements left foot, not elsewhere classified; M21.621 Bunionette of right foot; M21.622 Bunionette of left foot; M21.41 Flat foot [pes planus] (acquired), right foot; M21.42 Flat foot [pes planus] (acquired), left foot
CPT/HCPCS: 99203

== ENCOUNTER → 2024-12-22 15:32 | Outpatient (BNVA) | payer OTHER, SELFPAY | PROVIDERS: PCP Nurse Practitioner Family; Visit Provider Student in an Organized Health Care Education/Training Program | DX: M20.11 Hallux valgus (acquired), right foot (principal); M20.12 Hallux valgus (acquired), left foot; M24.874 Other specific joint derangements of right foot, not elsewhere classified; M24.875 Other specific joint derangements left foot, not elsewhere classified; M21.621 Bunionette of right foot; M21.622 Bunionette of left foot; M21.41 Flat foot [pes planus] (acquired), right foot; M21.42 Flat foot [pes planus] (acquired), left foot | CPT/HCPCS: 99202 ==

== ENCOUNTER 2024-12-27 15:59 | Outpatient (REF) | payer OTHER, SELFPAY ==
--- NOTE | ~2024-12-27 | XR_ITS ---
Exam: 2 view bilateral feet. INDICATION: Hallux valgus deformity. COMPARISON: None TECHNIQUE: AP, oblique, lateral view, bilateral feet x-rays FINDINGS: RIGHT FOOT: Intermetatarsal angle: Angle between the first and second metatarsal measured 14 degrees. (wnl <10 degrees). Metatarsophalangeal angle: Angle between the first metatarsal and proximal phalanx measured 39 degrees. (wnl <15 degrees). Interphalangeal angle: Angle between the proximal and distal phalanx measured 8 degrees. (wnl <10 degrees). Sesamoid position: Station 2 No other abnormalities are evident. LEFT FOOT: Intermetatarsal angle: Angle between the first and second metatarsal measured 20 degrees. (wnl <10 degrees). Metatarsophalangeal angle: Angle between the first metatarsal and proximal phalanx measured 32 degrees. (wnl <15 degrees). Interphalangeal angle: Angle between the proximal and distal phalanx measured 1 degree. (wnl <10 degrees). Sesamoid position: Station 3 . No other abnormalities are noted. XR/XR Foot Kali 3V IMPRESSION: Bilateral hallux valgus deformity. Station Criterion 0 sesamoid completely medial to mid-axial line of the first metatarsal 1 sesamoid less than 50% overlapping the line 2 sesamoid greater than 50% overlapping the line 3 sesamoid completely lateral to the line [Foot Ankle. Dec-Jan 1984;5(2):92-103. Hallux valgus assessment: report of research committee of [place] [employer]] Electronically signed by: Mati Garcia MD 12/27/2024 04:45 PM EDT
--- OUTSIDE RECORDS SUMMARY | 2024-12-27 18:35 | XMS_ITS | Encounter Summary ---
Author Organization [facility] Address [address] [place] [address] Phone Care Team Providers Care Residential Mortgage Underwriter Name Role Phone Ngoc Salmeron MD Primary Care Provider [phone] Encounter Details Date Type Department Care Team (Late st Contact Info) Description 08/28/2010 Conversion Encounter [facility] [address] [facility] [address] [place] [address] Social History Tobacco Use Types Packs/Day Years [...] on filedocumented in this encounter Care Teams Residential Mortgage Underwriter Relationship Specialty Start Date End Date Ngoc Salmeron MD PCP - General 08/25/17 documented as of this encounter
--- OUTSIDE RECORDS SUMMARY | 2024-12-27 18:35 | XMS_ITS | Clinical Summary ---
Author Organization [facility] Address [address] [place] [address] Phone Care Team Providers Care Robotics Application Engineer Name Role Phone Ngoc Salmeron MD Primary Care Provider Immunizations Immunization Administration Dates Next Due DTaP [...] patient's age to complete this topic Insurance [facility] Care Teams Robotics Application Engineer Relationship Specialty Start Date End Date Ngoc Salmeron MD PCP - General 08/25/17
== END 2024-12-27 16:00 | disposition home or self-care (01) ==
LOC: HO.XRAY 15:59
PROVIDERS: PCP Nurse Practitioner Family; Visit Provider Student in an Organized Health Care Education/Training Program
DX: M20.11 Hallux valgus (acquired), right foot (principal); M20.12 Hallux valgus (acquired), left foot
CPT/HCPCS: 73630

== ENCOUNTER → 2024-12-27 16:03 | Outpatient (BNV) | payer OTHER, SELFPAY | PROVIDERS: PCP Nurse Practitioner Family; Visit Provider Radiology Diagnostic Radiology | DX: M20.11 Hallux valgus (acquired), right foot (principal); M20.12 Hallux valgus (acquired), left foot | CPT/HCPCS: 73630 ==

== ENCOUNTER 2025-01-18 14:20 | Outpatient (AMB) | payer OTHER, SELFPAY ==
--- NOTE | 2025-01-18 14:31 | A.OFFVIS_ITS ---
Vital Signs 01/18/25 14:32 Height 5 ft 2 in Weight 105 lb BMI 19.2 Intake Visit Reasons: fu Intake Note: Stacie is a 25 year old female who presents today for a follow up on her bilateral bunion. Pt reports that she notices when she is standing for a long period of time that her bunions being to hurt but she finds it tolerable. Patient report she has not further questions or concerns at this time. Allergies apple Allergy (Severe, Verified 01/18/25 14:32) Unknown carrot Allergy (Severe, Verified 01/18/25 14:32) Unknown cat dander (cats) Allergy (Severe, Verified 01/18/25 14:32) Unknown pear Allergy (Severe, Verified 01/18/25 14:32) Unknown dust mite Allergy (Severe, Uncoded 11/03/24 09:54) Unknown pollen Allergy (Severe, Uncoded 11/03/24 09:54) Unknown HPI HPI fu: Details: 24-year-old female seen today for x-ray rewview and follow up evaluation of bilateral bunion pain. She states that she has had bunions her entire life. The patient has not tried bunion sleeves or straighteners but has been using orthotic inserts from a previous materials technician. She notes pain to her feet particularly at her bunions when she is wearing shoewear or on her feet a lot. [facility] Medical History (Updated 01/18/25 @ 20:34 by Jese Morales DPM) Food allergy Eczema Bunion of great toe of right foot (~02/2015) Bone mass (~02/2015) Allergic rhinitis (~06/2015) Surgical History (Updated 11/02/24 @ 10:00 by Nathan Herron MA) No pertinent past surgical history Family History (Updated 11/02/24 @ 09:58 by Nathan Herron MA) Father HTN (hypertension) High cholesterol Paternal Grandmother Diabetes Social History (Updated 11/03/24 @ 10:02 by Nathan Herron MA) Household Members: Other Household Members Other:: Mother Both parents involved: No Caregiver staying overnight: No Housing: House Are you a primary critical care registered nurse to a significant other at home: No Do you presently have visiting nurse or other home services: No 75 years or older and lives alone: No Alcohol intake: current Alcohol intake frequency: a few times a month Patient Tobacco Use Status: Never used Tobacco e-Cigarette/Vaping Use: Never Used Second Hand Smoke Exposure: No Current occupational status: employed Current occupation: [employer] Current occupational exposures/hazards: No Cognitive needs: No Hearing needs: No Vision needs: No Review of Systems Const All systems reviewed & are unremarkable except as noted in HPI and below Physical Exam Vital Signs: BMI result Body Mass Index 19.2 Extrem Other: *Bilateral Lower Extremity Focused Exam Vascular: DP/PT 2/4, CFT<3s to digits, TG warm to cool, no pedal edema Derm: No open wounds or lacerations. Neuro: Protective sensation grossly intact to bilateral lower extremities. MSK: Prominent medial eminence noted at the bilateral first metatarsophalangeal (MTP) joint without tenderness on palpation. Tracking, severe hallux valgus deformity bilaterally. Bilateral 1st Metatarsophalangeal joint ROM: 65 ? dorsiflexion. No joint crepitus. No pain on end range of motion. Positive Hypermobile first ray bilaterally. Functional hallux limitus with 25 degrees of dorsiflexion on weight-bearing. Tailor's bunionnette bilaterally, tracking. Long 2nd digit, bilaterally. Pes planus foot deformity bilaterally. No heel valgus. Results Reviewed Results Reviewed: Podiatry X-ray Read: 12/27/2024 X-ray right foot 3 views (AP, MO, Lateral) reviewed which shows 1st intermetatarsal angle of 15, metatarsal protrusion minus -2, TSP 4, ROME angle 38. 4th/5th intermetatarsal angle 14. Bone density is within normal limits. No evidence of swelling, foreign body, or calcifications. I personally reviewed the imaging and my findings are listed above. Podiatry X-ray Read: 12/27/2024 X-ray left foot 3 views (AP, MO, Lateral) reviewed which shows 1st intermetatarsal angle of 18.5, metatarsal protrusion minus -1, TSP 5, ROME angle 31. 4th/5th intermetatarsal angle 12. Bone density is within normal limits. Normal anatomy. No evidence of swelling, foreign body, or calcifications. I personally reviewed the imaging and my findings are listed above. Assessment & Plan Assessment & Plan (1) Hallux valgus (acquired), right foot: Code(s): M20.11 - Hallux valgus (acquired), right foot Category: Medical Plan: * Reviewed bilateral foot x-rays with the patient. * Discussed etiology of bilateral bunions and her flatfeet. * Explained that the hyper-mobility aspect of her first ray leads to worsening progressive deformity of her bunion deformity. * Recommended she use bunion sleeves to reduce her bunion deformity to decrease her pain symptoms. Explained that however her bunion deformity is a progressive deformity and will likely worsen over time. Discussed she will likely require surgical correction for her bunions in the future to avoid eventual progression of 1st MTP joint arthritis. * Recommend continued use of her orthotics to slow down progression of her pes valgus deformity and her bunion. * Discussed conservative versus surgical treatment options. She was recommended a 1st tarsometatarsal joint arthrodesis/Lapidus fusion to correct her bunion, provide a more predictable long-term correction, and correct the bunion at the root of its deformity (KENNY). Explained that minimally invasive surgery options for distal 1st metatarsal osteotomies can cause recurrence in her foot type due to her hyper mobile 1st ray. * Discussed postoperative protocol which would include minimum of 4-6 weeks of nonweightbearing, and 4-6 weeks of partial/protected weight-bearing. Recommended correcting one foot at a time for better postop recovery. * Recommended the patient follow up when she is ready to plan for surgery. (2) Hallux valgus (acquired), left foot: Code(s): M20.12 - Hallux valgus (acquired), left foot Category: Medical Plan: * Reviewed x-ray (3) Hypermobile joint syndrome of both feet: Code(s): M24.874 - Other specific joint derangements of right foot, not elsewhere classified; M24.875 - Other specific joint derangements left foot, not elsewhere classified Category: Medical Plan: * 1st TMT hypermobility bilaterally (4) Tailor's bunion of both feet: Code(s): M21.621 - Bunionette of right foot; M21.622 - Bunionette of left foot Category: Medical Plan: * Recommended surgical correction of her bunionette at the same time as her bunion deformity (5) Pes planus of both feet: Code(s): M21.41 - Flat foot [pes planus] (acquired), right foot; M21.42 - Flat foot [pes planus] (acquired), left foot Category: Medical Plan: * Continue orthotics (6) Hammertoe, bilateral: Code(s): M20.41 - Other hammer toe(s) (acquired), right foot; M20.42 - Other hammer toe(s) (acquired), left foot Category: Medical Plan: * Recommended 2nd metatarsal Aron osteotomy and possible 2nd digit correction due to abnormal metatarsal parabola with a longer 2nd metatarsal and digit. Coding Level of Care Code Est Pt Level 3 (58342) Diagnoses Hallux valgus (acquired), right foot M20.11 Hallux valgus (acquired), left foot M20.12 Hypermobile joint syndrome of both feet M24.874; M24.875 Tailor's bunion of both feet M21.621; M21.622 Pes planus of both feet M21.41; M21.42 Hammertoe, bilateral M20.41; M20.42 Time Spent (min) 45 Comment Discussed surgical treatment options extensively
[2025-01-18 14:32] VITALS: BMI 19.2
--- OUTSIDE RECORDS SUMMARY | 2025-01-18 15:58 | XMS_ITS | Clinical Summary ---
Author Organization [facility] Address [address] [place] [address] Phone Care Team Providers Care Field Operations Supervisor Name Role Phone Ngoc Salmeron MD Primary Care Provider [phone] Immunizations Immunization Administration Dates Next Due DTaP [...] Influenza Vaccines (#1) 2024 COVID-19 Vaccine ( - 2024- season) 2024 Pneumococcal Vaccine Aged Out 01/26/2003, [...] patient's age to complete this topic Insurance [facility] Care Teams Field Operations Supervisor Relationship Specialty Start Date End Date Ngoc Salmeron MD PCP - General 08/25/17
--- OUTSIDE RECORDS SUMMARY | 2025-01-18 15:58 | XMS_ITS | Encounter Summary ---
Author Organization [facility] Address [address] [place] [address] Phone Care Team Providers Care Boots And Shoes Supervisor Name Role Phone Ngoc Salmeron MD Primary Care Provider [phone] Encounter Details Date Type Department Care Team (Late st Contact Info) Description 08/28/2010 Conversion Encounter [facility] [address] [place] [id number] Social History Tobacco Use Types Packs/Day Years [...] on filedocumented in this encounter Care Teams Boots And Shoes Supervisor Relationship Specialty Start Date End Date Ngoc Salmeron MD PCP - General 08/25/17 documented as of this encounter
== END 2025-01-18 14:56 | disposition home or self-care (01) ==
LOC: HO.HPODS 14:21
PROVIDERS: PCP Nurse Practitioner Family; Visit Provider Student in an Organized Health Care Education/Training Program
DX: M20.11 Hallux valgus (acquired), right foot (principal); M20.12 Hallux valgus (acquired), left foot; M24.874 Other specific joint derangements of right foot, not elsewhere classified; M24.875 Other specific joint derangements left foot, not elsewhere classified; M21.621 Bunionette of right foot; M21.622 Bunionette of left foot; M21.41 Flat foot [pes planus] (acquired), right foot; M21.42 Flat foot [pes planus] (acquired), left foot; M20.41 Other hammer toe(s) (acquired), right foot; M20.42 Other hammer toe(s) (acquired), left foot
CPT/HCPCS: 99215

== ENCOUNTER → 2025-01-18 14:20 | Outpatient (BNVA) | payer OTHER, SELFPAY | PROVIDERS: PCP Nurse Practitioner Family; Visit Provider Student in an Organized Health Care Education/Training Program | DX: M20.11 Hallux valgus (acquired), right foot (principal); M20.12 Hallux valgus (acquired), left foot; M24.874 Other specific joint derangements of right foot, not elsewhere classified; M24.875 Other specific joint derangements left foot, not elsewhere classified; M21.621 Bunionette of right foot; M21.622 Bunionette of left foot; M21.41 Flat foot [pes planus] (acquired), right foot; M21.42 Flat foot [pes planus] (acquired), left foot; M20.41 Other hammer toe(s) (acquired), right foot; M20.42 Other hammer toe(s) (acquired), left foot | CPT/HCPCS: 99212 ==

== ENCOUNTER 2025-03-28 13:08 | Outpatient (AMB) | payer OTHER, SELFPAY ==
--- NOTE | 2025-03-28 13:10 | MHC.OFFVIS ---
Vital Signs 03/28/25 13:17 Height 5 ft 2 in Weight 106 lb BMI 19.4 BP 108/68 Intake Visit Reasons: New patient Annual Career Information Specialist: Career Information Specialist Present (Olena) Accompanied by: Self / Same As Patient Allergies apple Allergy (Severe, Verified 03/28/25 13:16) Unknown carrot Allergy (Severe, Verified 03/28/25 13:16) Unknown cat dander (cats) Allergy (Severe, Verified 03/28/25 13:16) Unknown pear Allergy (Severe, Verified 03/28/25 13:16) Unknown dust mite Allergy (Severe, Uncoded 11/03/24 09:54) Unknown pollen Allergy (Severe, Uncoded 11/03/24 09:54) Unknown Medication List - Last Reconciled 03/28/25 by Heena Hou CNM amoxicillin 500 mg PO BID copper (ParaGard T 380A) intrauterine Is last menstrual period known: Yes Last menstrual period: 03/17/25 Post menopausal: No Patient : No HPI HPI New patient Annual: Details: Patient is here for boat hoist operator helper appointment. She says she has never had a real boat hoist operator helper appointment before however she [facility] so she has had a pelvic and speculum exam at least. She is not having any boat hoist operator helper concerns at all. She chose the ParaGard IUD because she would like to be idea of not having any hormones. She has noticed her periods have become a little heavier but not any more crampy or anything and they are just not that bad. She is sexually active with a partner and has been with the same partner for a while they used condoms at the start but not now she is not really worried about any STDs. She has no other health concerns as far she knows she has some abnormality of bone growth in her left anterior chest wall but she said sides it was checked years ago when she was in grandma school and it was fine. She is currently on either ampicillin or amoxicillin for strep throat and has a couple of days of the prescription left. She noticed that her periods sort of ended maybe a little earlier the and then a day later she had another little bit of red blood come out and she wondered if that was normal. Also sometimes after her. There is a little bit of an odor. [facility] Medical History Food allergy Eczema Bunion of great toe of right foot (~02/2015) Bone mass (~02/2015) Allergic rhinitis (~06/2015) Surgical History No pertinent past surgical history Family History Father HTN (hypertension) High cholesterol Paternal Grandmother Diabetes Social History Household Members: Other Household Members Other:: Mother Both parents involved: No Caregiver staying overnight: No Housing: House Are you a primary critical care nurse practitioner to a significant other at home: No Do you presently have visiting nurse or other home services: No 75 years or older and lives alone: No Alcohol intake: current Alcohol intake frequency: a few times a month Patient Tobacco Use Status: Never used Tobacco e-Cigarette/Vaping Use: Never Used Second Hand Smoke Exposure: No Current occupational status: employed Current occupation: [employer] Current occupational exposures/hazards: No Cognitive needs: No Hearing needs: No Vision needs: No Female Reproductive History Menstrual Age of Menarche: 12 Duration of menses: 3-5 days Date of last menstrual period: 03/17/25 control method: copper IUCD (ParaGard ) Total pregnancies: 0 Physical Exam Vital Signs: Last Vital Signs BP 108/68 03/28/25 13:17 BMI result Body Mass Index 19.4 Const General: healthy appearing, comfortable, no acute distress, well developed and alert Nutritional Appearance: average body habitus Orientation/consciousness: patient oriented x3 Limitations: no limitations HEENT Head: Yes normocephalic Neck Neck: Yes normal visual inspection Chest Chest palpation & inspection: normal inspection of the chest (Patient does have a slight protuberance of the left anterior chest wall/rib) Breast/axilla inspection: normal inspection of the breasts and normal inspection of the axillae Breast/axilla palpation: normal palpation of the breasts and normal palpation of the axillae Resp Effort & Inspection: normal respiratory effort GI Inspection: Yes normal to inspection, No Abdominal wall edema and No distended Palpation (GI): Soft to palpation and nontender Other: Normal external exam vagina is pink and moist cervix nulliparous pink cervix. There is a white ParaGard string with slight discoloration distally. Cervix is long close thick mobile nontender uterus is midposition mobile nontender adnexa easily palpable secondary to patient thin frame left adnexa slightly more full than right, but neither enlarged beyond completely normal. Good tone with Kegel General: Yes bladder normal to palpation External Female Exam: normal external appearance and normal appearance of the urethra Speculum Exam - Vagina: normal appearance of the vagina, normal palpation and normal vaginal discharge Speculum Exam - Cervix: normal appearance of the cervix, normal palpation and nontender Bimanual exam- vagina & uterus: normal bimanual exam, normal palpation, uterine size normal, bladder normal to palpation, consistency normal, normal palpation, uterine mobility normal, uterine shape normal, No Cervical tenderness present, non-tender and no cervical motion tenderness Bimanual Exam- Adnexa, other: normal adnexae, no masses, normal and No adnexal tenderness Neuro General: patient oriented x3 Results Reviewed Results Reviewed: Name: Stacie Werner Age/Sex: 24/F : 2000 Unit#: [id number] Attend Dr: Yanira Miller COPPERSMITH HELPER- Re11/03/24 Status: DEP REF Location: [facility] Disch: SPEC : [id number] ANTHONY: 11/03/24 STATUS: COMP REQ : [id number] RECD: 11/03/24-[address]: Yanira Miller [facility]- COMP: 11/03/24-1103 ENTERED: 11/03/[address] [facility] [address]: ORDERED: CBC No Diff Test Result Flag Reference WBC 5.6 4.8-10.8 X10*3/uL RBC 4.96 4.20-5.50 X10*6/uL HGB 10.1 L 12.0-16.0 g/dl HCT 33.4 L 37.0-47.0 % MCV 67.3 L 80.0-98.0 fL MCH 20.4 L 27.0-33.0 pg MCHC 30.2 L 31.0-35.0 g/dl RDW 18.8 H 11.0-16.0 % PLT 278 160-400 X10*3/uL NRBC Pct Auto 0.0 0.0-0.2 /100WBC NRBC Abs Auto 0.000 0.0-0.012 X10*3/uL Assessment & Plan Assessment & Plan (1) IUD (intrauterine device) in place: Onset Date: ~12/31/20 Comment: Has [facility] ParaGard [facility] Discussed menses/CBC... Code(s): Z97.5 - Presence of (intrauterine) contraceptive device Category: Medical (2) Anemia: Comment: Mild,(hgb10.1) discussed watching for heavier menses and increasing iron rich foods and possibly supplementing with OTC iron.... Code(s): D64.9 - Anemia, unspecified Category: Medical Plan -----Discussed in this visit the following: healthy balanced diet, regular and consistent exercise, getting recommended health screens, doing the best she can for her particular health concerns, kegel exercises, pap smear screening and followup recommendations, mammography screening and SBE, normal changes in cycles in her life stage--- . Offered screening for blood work for STIs but she does not feel she needs that. Discussed normal vaginal concerns and vaginal odors after menses and bacterial vaginosis and how to minimally manage it if symptomatic with with the least intervention possible as necessary. If an odor goes away with water and a shower then it need not be treated. Testing done today for her 1st Pap smear (cervix friable with Pap) as well as testing for gonorrhea chlamydia trichomoniasis bacterial vaginosis and yeast the latter 2 which do not need to be treated unless they're symptomatic . Reviewed the ParaGard IUD and that the only possible concern long-term could be heavier menses leading to anemia. Her CBC in October reflected a slightly low H&H discussed being mindful of adding iron rich foods to her diet she does like red meat. Offered prescription for iron but she may decide to just improve her diet and if necessary add an iron tablet every day OTC. Discussed the variation of menses that having menses stopped near the end and restart for 1 day is not uncommon, and would not reflect a problem with the IUD if she ever did have pain or something else going on her bleeding consistently in between menses that might deserve workup Coding Level of Care Code New Pt Prev Care 18-39yr([id number] Diagnoses IUD (intrauterine device) in place Z97.5 Anemia D64.9
[2025-03-28 13:17] VITALS: BP 108/68; BMI 19.4
--- OUTSIDE RECORDS SUMMARY | 2025-03-28 20:24 | XMS_ITS | Encounter Summary ---
Author Organization [facility] Address [address] [place] [address] Phone Care Team Providers Care Foundation Digger Name Role Phone Ngoc Salmeron MD Primary Care Provider [phone] Encounter Details Date Type Department Care Team (Late st Contact Info) Description 08/28/2010 Conversion Encounter [facility] [address] [place] [id number] Social History Tobacco Use Types Packs/Day Years [...] on filedocumented in this encounter Care Teams Foundation Digger Relationship Specialty Start Date End Date Ngoc Salmeron MD PCP - General 08/25/17 documented as of this encounter
--- OUTSIDE RECORDS SUMMARY | 2025-03-28 20:24 | XMS_ITS | Clinical Summary ---
Author Organization [facility] Address [address] [place] [id number] Phone Care Team Providers Care Meter Readers Supervisor Name Role Phone Ngoc Salmeron MD Primary Care Provider [phone] Immunizations Immunization Administration Dates Next Due DTaP [...] patient's age to complete this topic Insurance [facility] Care Teams Meter Readers Supervisor Relationship Specialty Start Date End Date Ngoc Salmeron MD PCP - General 08/25/17
== END 2025-03-28 14:05 | disposition home or self-care (01) ==
LOC: HO.HWSM 13:08
PROVIDERS: PCP Nurse Practitioner Family; Visit Provider Advanced Practice Midwife
DX: Z01.419 Encounter for gynecological examination (general) (routine) without abnormal findings (principal); D64.9 Anemia, unspecified; Z97.5 Presence of (intrauterine) contraceptive device
CPT/HCPCS: 99385; 99459

== ENCOUNTER 2025-03-28 13:08 | Outpatient (REF) | payer OTHER, SELFPAY ==
[2025-03-28 22:38] LABS: Bacterial Vaginosis PCR POSITIVE (Negative); Candida Group PCR NOT DETECTED (Not Detect); Candida glab krusei PCR NOT DETECTED (Not Detect); Trichomonas vaginalis PCR NOT DETECTED (Not Detect)
[2025-03-28 23:22] LABS: CT PCR NOT DETECTED (Not Detect.); NG PCR NOT DETECTED (Not Detect.)
== END 2025-03-28 13:09 | disposition home or self-care (01) ==
LOC: HO.LNP 13:08
PROVIDERS: PCP Nurse Practitioner Family; Visit Provider Advanced Practice Midwife
DX: Z01.419 Encounter for gynecological examination (general) (routine) without abnormal findings (principal); Z97.5 Presence of (intrauterine) contraceptive device; D64.9 Anemia, unspecified; Z11.51 Encounter for screening for human papillomavirus (HPV); Z20.2 Contact with and (suspected) exposure to infections with a predominantly sexual mode of transmission; J02.0 Streptococcal pharyngitis
CPT/HCPCS: 81515; 87491; 87591; 87626; 88175